=== PATIENT | female | born 1985 ===

== ENCOUNTER 2021-03-14 15:50 | Emergency (ER) | payer MEDICAID ==
[~2021-03-14] VITALS: Ht 167.6 cm; Wt 104.3 kg
[2021-03-14 19:30] VITALS: BP 116/65
== END 2021-03-14 20:03 | disposition home or self-care (01) ==
LOC: ER 15:50
DX: T16.1XXA Foreign body in right ear, initial encounter (principal); W22.8XXA Striking against or struck by other objects, initial encounter; Y93.89 Activity, other specified; Y92.89 Other specified places as the place of occurrence of the external cause; Y99.8 Other external cause status
CPT/HCPCS: 69200